=== PATIENT | male | born 1985 | race Caucasian/White ===

== ENCOUNTER 2022-12-25 07:34 | Inpatient (IN) | payer OTHER ==
[2022-12-25] MEDS ORDERED: THIAMINE INJ 100 MG, MAGNESIUM SULFATE 2 GM, MULTIVITAMIN 10 ML, FOLIC ACID INJ 1 MG in... IV ONE ×5 (07:56)
[2022-12-25] MEDS ORDERED: LORazepam 2 MG/ML VIAL IVP STA ×3 (07:56→10:11)
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
[2022-12-25 08:02] LABS: BASOPHILS % (AUTO) 0.2 %; HCT - HEMATOCRIT 41.8 % (42.0-52.0); HGB - HEMOGLOBIN 13.7 g/dL (14.0-18.0); LYMPHOCYTES # (AUTO) 0.6 10^3/uL (1.5-3.5); LYMPHOCYTES % (AUTO) 13.1 %; MEAN CORPUSCULAR HEMOGLOBIN 32.5 pg (27.0-31.0); MEAN CORPUSCULAR HGB CONC 32.8 g/dL (32.0-36.0); MEAN CORPUSCULAR VOLUME 99.3 fL (80.0-94.0); MEAN PLATELET VOLUME 10.2 fL (7.4-11.4); MONOCYTES # (AUTO) 0.5 10^3/uL (0.0-1.0); MONOCYTES % (AUTO) 10.5 %; NEUTROPHILS # (AUTO) 3.2 10^3/uL (1.5-6.6); NEUTROPHILS % (AUTO) 75.7 %; PLT - PLATELET COUNT 124 10^3/uL (130-450); RED BLOOD COUNT 4.21 10^6/uL (4.70-6.10); WHITE BLOOD COUNT 4.3 x10^3/uL (4.8-10.8)
[2022-12-25 08:13] LABS: GLUCOSE, URINE (UA) NEGATIVE (NEGATIVE); KETONES,URINE (UA) >=80 mg/dL (NEGATIVE); LEUKOCYTE ESTERASE, URINE NEGATIVE (NEGATIVE); NITRITE,URINE NEGATIVE (NEGATIVE); OCCULT BLOOD,URINE NEGATIVE (NEGATIVE); PROTEIN,URINE TRACE mg/dL (NEGATIVE); UROBILINOGEN,URINE 0.2 (NORMAL) E.U./dL (NORMAL)
[2022-12-25 08:22] LABS: ALBUMIN 4.9 g/dL (3.2-5.5); ALBUMIN/GLOBULIN RATIO 1.2 (1.0-2.2); ALKALINE PHOSPHATASE 67 IU/L (42-121); ALT ALANINE AMINOTRANSFERASE 44 IU/L (10-60); AST ASPARTATE AMINOTRANSFERASE 89 IU/L (10-42); BILIRUBIN,TOTAL 1.1 mg/dL (0.2-1.0); BUN - BLOOD UREA NITROGEN 10 mg/dL (6-20); CALCIUM 9.5 mg/dL (8.5-10.3); CARBON DIOXIDE - CO2 25 mmol/L (21-32); CHLORIDE 98 mmol/L (101-111); CREATININE 0.7 mg/dL (0.6-1.2); ETOH - ETHANOL < 5.0 mg/dL; GFR - MDRD 128 (>89); GLUCOSE 102 mg/dL (70-100); LIPASE 44 U/L (22-51); POTASSIUM 3.5 mmol/L (3.5-5.0); SODIUM 135 mmol/L (135-145); TOTAL PROTEIN 8.9 g/dL (6.7-8.2)
[2022-12-25 08:26] LABS: BILIRUBIN,URINE NEGATIVE (NEGATIVE); CLARITY,URINE CLEAR (CLEAR)
[2022-12-25 08:27] LABS: ICTOTEST,URINE NEGATIVE
[2022-12-25 08:28] LABS: AMPHETAMINE SCREEN,URINE NEGATIVE (NEGATIVE); BARBITURATE SCREEN,UR NEGATIVE (NEGATIVE); BENZODIAZEPINES SCREEN, URINE NEGATIVE (NEGATIVE); COCAINE SCREEN URINE NEGATIVE (NEGATIVE); METHADONE SCREEN, URINE NEGATIVE (NEGATIVE); METHAMPHETAMINES SCREEN, URINE NEGATIVE (NEGATIVE); OPIATE SCREEN, URINE NEGATIVE (NEGATIVE); OXYCODONE SCREEN, URINE NEGATIVE (NEGATIVE); PROPOXYPHENE SCREEN, URINE NEGATIVE (NEGATIVE); THC CANNABINOID SCREEN, URINE NEGATIVE (NEGATIVE); TRICYCLIC ANTIDEPRESSANT,URINE NEGATIVE (NEGATIVE)
[2022-12-25 08:34] LABS: PT - PROTHROMBIN TIME 11.4 secs (9.9-12.6)
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
[2022-12-25] MEDS: LORazepam 2 MG/ML VIAL IVP PRN ×11 (11:15→21:49)
[2022-12-25] MEDS: PANTOPRAZOLE 40 MG VIAL IVP SCH (13:45)
[2022-12-25] MEDS ORDERED: MULTIVITAMIN 10 ML, THIAMINE INJ 100 MG, POTASSIUM CHLORIDE INJ 20 MEQ, FOLIC ACID INJ ... IV SCH ×10 (15:37→17:00)
[2022-12-25 15:48] LABS: CALCIUM, IONIZED 1.11 mmol/L (1.15-1.33); VBG PH 7.375 (7.31-7.41)
[2022-12-25 15:58] LABS: MAGNESIUM 2.2 mg/dL (1.7-2.8); PHOSPHORUS 3.3 mg/dL (2.5-4.6)
[2022-12-25] MEDS ORDERED: MAGNESIUM SULFATE 2 GRAM 2 GM/50 ML BAG IV ONE (16:00)
[2022-12-25] MEDS: SODIUM CHLORIDE FLUSH 0.9% 10 ML SYRINGE IVP SCH ×2 (16:50→21:49)
[2022-12-25] MEDS: POTASSIUM CHLOR 10 MEQ/100 ML 10 MEQ/100 ML BAG IV SCH ×4 (17:43→21:46)
[2022-12-26] MEDS: LORazepam 2 MG/ML VIAL IVP PRN ×8 (00:23→21:43)
[2022-12-26] MEDS: SODIUM CHLORIDE FLUSH 0.9% 10 ML SYRINGE IVP PRN ×2 (00:23→06:20)
[2022-12-26] MEDS: SODIUM CHLORIDE 0.9% 1,000 ML IV SCH ×3 (02:13→22:37)
[2022-12-26 05:51] LABS: BASOPHILS % (AUTO) 0.4 %; CALCIUM, IONIZED 1.12 mmol/L (1.15-1.33); EOSINOPHILS # (AUTO) 0.1 10^3/uL (0.0-0.7); EOSINOPHILS % (AUTO) 1.6 %; HCT - HEMATOCRIT 38.7 % (42.0-52.0); HGB - HEMOGLOBIN 12.4 g/dL (14.0-18.0); LYMPHOCYTES # (AUTO) 0.8 10^3/uL (1.5-3.5); LYMPHOCYTES % (AUTO) 15.3 %; MEAN CORPUSCULAR HEMOGLOBIN 33.1 pg (27.0-31.0); MEAN CORPUSCULAR VOLUME 103.2 fL (80.0-94.0); MEAN PLATELET VOLUME 10.1 fL (7.4-11.4); MONOCYTES # (AUTO) 0.5 10^3/uL (0.0-1.0); MONOCYTES % (AUTO) 10.3 %; NEUTROPHILS # (AUTO) 3.6 10^3/uL (1.5-6.6); NEUTROPHILS % (AUTO) 72.2 %; PLT - PLATELET COUNT 137 10^3/uL (130-450); RED BLOOD COUNT 3.75 10^6/uL (4.70-6.10); RED CELL DISTRIBUTION WIDTH 12.1 % (12.0-15.0); VBG PH 7.323 (7.31-7.41)
[2022-12-26 06:02] LABS: ALBUMIN/GLOBULIN RATIO 1.2 (1.0-2.2); BILIRUBIN,TOTAL 1.1 mg/dL (0.2-1.0); CALCIUM 8.5 mg/dL (8.5-10.3); CREATININE 0.6 mg/dL (0.6-1.2); MAGNESIUM 2.3 mg/dL (1.7-2.8); PHOSPHORUS 3.1 mg/dL (2.5-4.6); POTASSIUM 3.8 mmol/L (3.5-5.0); TOTAL PROTEIN 7.3 g/dL (6.7-8.2)
[2022-12-26] MEDS: PANTOPRAZOLE 40 MG VIAL IVP SCH (06:20)
[2022-12-26] MEDS: POTASSIUM CHLOR 10 MEQ/100 ML 10 MEQ/100 ML BAG IV SCH ×2 (06:27→07:49)
[2022-12-26] MEDS: NICOTINE 7 MG PATCH TOP SCH (09:25)
[2022-12-26] MEDS: polyethylene glycoL 3350 17 GM PACKET PO SCH (09:29)
[2022-12-26] MEDS: SODIUM CHLORIDE FLUSH 0.9% 10 ML SYRINGE IVP SCH ×2 (09:29→18:19)
[2022-12-26] MEDS: ENOXAPARIN 40 MG/0.4 ML SYRINGE SUBQ SCH (09:32)
--- NOTE | 2022-12-26 10:45 | PHARMACY PROGRESS NOTE ---
- Best Possible Medication History Admit Date and Time: 12/25/22 1048 Processed by: Pharmacy Medication History completed: Yes Patient Interview: Pt interview ONLY source As the person ultimately responsible for medication therapy, providers are able to order a medication from an existing home medication list in [facility] via the "Reconcile Routine" prior to Confirmation of that medication by faculty support coordinator. Such practice is discouraged except when the physician, in their clinical judgment, deems that a medical need exists for a medication without regard to previous use.
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
[2022-12-26] MEDS: MULTIVITAMIN TABLET PO SCH (12:27)
[2022-12-26] MEDS: THIAMINE 100 MG TABLET PO SCH (12:27)
[2022-12-26] MEDS: chlordiazePOXIDE 5 MG CAPSULE PO SCH ×2 (13:28→21:43)
[2022-12-26] MEDS ORDERED: POTASSIUM CHLORIDE 20 MEQ TABLET PO ONE (17:00)
[2022-12-27] MEDS: SODIUM CHLORIDE FLUSH 0.9% 10 ML SYRINGE IVP SCH ×3 (03:20→17:43)
[2022-12-27 05:25] LABS: CALCIUM, IONIZED 1.16 mmol/L (1.15-1.33); VBG PH 7.342 (7.31-7.41)
[2022-12-27 05:32] LABS: PHOSPHORUS 3.1 mg/dL (2.5-4.6); POTASSIUM 3.9 mmol/L (3.5-5.0)
[2022-12-27] MEDS: PANTOPRAZOLE 40 MG TABLET PO SCH (06:26)
[2022-12-27] MEDS: chlordiazePOXIDE 5 MG CAPSULE PO SCH ×3 (06:26→21:54)
[2022-12-27] MEDS: polyethylene glycoL 3350 17 GM PACKET PO SCH (08:02)
[2022-12-27] MEDS: THIAMINE 100 MG TABLET PO SCH (08:20)
[2022-12-27] MEDS: MULTIVITAMIN TABLET PO SCH (08:20)
[2022-12-27] MEDS: NICOTINE 7 MG PATCH TOP SCH (08:21)
[2022-12-27] MEDS: ENOXAPARIN 40 MG/0.4 ML SYRINGE SUBQ SCH ×2 (08:24→08:27)
[2022-12-27] MEDS: SODIUM CHLORIDE 0.9% 1,000 ML IV SCH (08:48)
[2022-12-27] MEDS ORDERED: POTASSIUM CHLORIDE 20 MEQ TABLET PO ONE (08:50)
[2022-12-27 12:34] LABS: BASOPHILS % (AUTO) 0.5 %; HCT - HEMATOCRIT 41.7 % (42.0-52.0); HGB - HEMOGLOBIN 13.7 g/dL (14.0-18.0); LYMPHOCYTES # (AUTO) 0.8 10^3/uL (1.5-3.5); LYMPHOCYTES % (AUTO) 20.4 %; MEAN CORPUSCULAR HGB CONC 32.9 g/dL (32.0-36.0); MEAN CORPUSCULAR VOLUME 100.5 fL (80.0-94.0); MEAN PLATELET VOLUME 9.8 fL (7.4-11.4); MONOCYTES # (AUTO) 0.5 10^3/uL (0.0-1.0); MONOCYTES % (AUTO) 11.4 %; NEUTROPHILS # (AUTO) 2.7 10^3/uL (1.5-6.6); NEUTROPHILS % (AUTO) 66.5 %; PLT - PLATELET COUNT 166 10^3/uL (130-450); RED BLOOD COUNT 4.15 10^6/uL (4.70-6.10); RED CELL DISTRIBUTION WIDTH 11.7 % (12.0-15.0)
[2022-12-27 12:44] LABS: CALCIUM 9.6 mg/dL (8.5-10.3); CREATININE 0.6 mg/dL (0.6-1.2); POTASSIUM 4.2 mmol/L (3.5-5.0)
[2022-12-27] MEDS: METOPROLOL SUCCINATE 50 MG TABLET PO SCH (14:15)
--- NOTE | 2022-12-27 17:10 | PROVIDER PROGRESS NOTE ---
Progress Note December 27, 2022 5:04 PM He is up in a chair, seems to have an essential tremor with head shaking. But he is alert, oriented. Librium has been 5 mg 3 times daily. Ativan is 1 mg every 2 hours as needed and his last dose was at 945 last night. Nursing reported that he is continually tachycardic, and slightly hypertensive. Blood pressure is 155/105, 150/99. I started metoprolol XL 50 mg for the blood pressure and the tachycardia and his blood pressure is now 132/92. Active Medications Chlordiazepoxide HCl (Chlordiazepoxide 5 Mg Capsule) 5 mg PO TID [facility] Last Admin: 12/27/22 13:59 Dose: 5 mg Enoxaparin Sodium (Enoxaparin 40 Mg/0.4 Ml Syringe) 40 mg SUBQ DAILY [facility] Last Admin: 12/27/22 08:27 Dose: Not Given Sodium Chloride (Normal Saline 0.9%) 1,000 mls @ 100 mls/hr IV .Q10H [facility] Last Infusion: 12/27/22 09:45 Dose: 0 mls/hr Lorazepam (Lorazepam 2 Mg/Ml Vial) 1 mg IVP Q30M PRN; Protocol PRN Reason: CIWA >8 Last Admin: 12/26/22 21:43 Dose: 1 mg Metoprolol Succinate (Metoprolol Succinate 50 Mg Tablet) 50 mg PO DAILY [facility] Last Admin: 12/27/22 14:15 Dose: 50 mg Nicotine (Nicotine 7 Mg Patch) 1 patch TOP DAILY [facility] Last Admin: 12/27/22 08:21 Dose: 1 patch Pantoprazole Sodium (Pantoprazole 40 Mg Tablet) 40 mg PO QDAC [facility] Last Admin: 12/27/22 06:26 Dose: 40 mg Polyethylene Glycol (Polyethylene Glycol 3350 17 Gm Packet) 17 gm PO DAILY [facility] Last Admin: 12/27/22 08:02 Dose: Not Given Multivit/Folic Acid/Iron ( Vitamin Tablet) 1 tab PO DAILYWM [facility] Sodium Chloride (Sodium Chloride Flush 0.9% 10 Ml Syringe) 10 ml IVP 0100,0900,1700 [facility] Last Admin: 12/27/22 08:48 Dose: Not Given Sodium Chloride (Sodium Chloride Flush 0.9% 10 Ml Syringe) 10 ml IVP PRN PRN PRN Reason: NEEDED PER PROVIDER ORDERS Last Admin: 12/26/22 06:20 Dose: 10 ml Thiamine HCl (Thiamine 100 Mg Tablet) 100 mg PO DAILY [facility] Last Admin: 12/27/22 08:20 Dose: 100 mg No Known Home Medications 12/26/22 Exam: Temperature 36.9. Heart rate 86. Blood pressure 132/92. Respirations 16. 98% on room air. He is an alert, oriented young white male looks stated age His face is developed a acneiform rash starting along the nasolabial folds and around his cheeks. Neck is supple Lungs are clear to auscultation and percussion without any increased respiratory effort and speaking to me Regular rate and rhythm Abdomen is soft, nontender Extremities are warm, no edema, fully ambulatory without any assist Neurologically there is no tremulousness, he is alert and oriented to person place and time, he would like to go home with a benzodiazepine. His head and hands seem to have an essential tremor that he says runs in his family. Labs: Sodium 136, potassium 4.2, BUN 6, creatinine 0.6, glucose 122, calcium 9.6 White cell count 4.0, hemoglobin 13.7, hematocrit 41.7, MCV 100.5, platelets 166 Conclusion/Plan - Problem List (1) Alcohol withdrawal delirium, acute, hyperactive Conclusion/Plan: If it was not for the tachycardia, I would think that his alcohol withdrawal had completely resolved. His delirium has certainly improved. His last IV benzodiazepine was last night. He is on Librium 5 mg p.o. 3 times daily and well-controlled with his agitation and acute hyperactive status. He would like to go home tomorrow. And he would like to go home on a benzodiazepine to help him with further withdrawal symptoms. He is ambulating in the room. Sitting up in a chair. Eating and drinking normally. Plan: I explained that we would be glad to send him home with Librium 5 mg p.o. 3 times daily, probably about 3 to 5 days worth of medicines. But after that he really needs to establish himself with a primary care provider to get ongoing care. He says he does not have 1 right now. A list of been given to him by social work. I also want him to get thiamine 100 mg a day, and a vitamin daily. If he wants further benzodiazepines he will need to get them from his PCP. He really is hesitant at committing to rehab. He says that he wants to work and will go back to work the day he leaves the hospital. 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 And he is thinking that he would just do outpatient rehab. I expect that the beta-bharti and Librium will control him overnight and he will be ready for discharge tomorrow morning. IV fluids will be stopped today. (2) Alcohol abuse Conclusion/Plan: In looking at his lab work, he does not have macrocytosis. Liver enzymes are only minimally elevated. Coagulation profile is acceptable. So his MELD score is low. I am hoping he can get through rehab and with hard work on his part, stop drinking alcohol. (3) BRBPR (bright red blood per rectum) Conclusion/Plan: By history. As far as his aunt and dad know there has been no black tarry stools. The patient does not have a history of vomiting blood.Hemoglobin has stayed stable. It was 13.7 on admission>>12.4>>13.7 today. Nursing reports that he had a coughing up of blood 3/4. There are no lesions in his mouth. Not clear if he may have had a nosebleed and then coughed up blood. Or did he truly have hemoptysis. Or do we have to suspect hematemesis? I doubt the latter since he is hemodynamically stable with this. And hemoglobin is stable. He is on a proton pump inhibitor and that will continue while he is here. Plan: Watch for signs and symptoms of variceal bleeding. (4) DVT prophylaxis is been with Lovenox. Platelets have been stable. He is now up and ambulating. I will stop Lovenox and exchange trouble shooter to compression stockings. (5) Hypertension Metoprolol added with good response. I told him that this may just be a complication of the withdrawal. He should see a primary care provider in the next month and see if he needs to be on metoprolol or if it can be stopped.
[2022-12-28] MEDS: SODIUM CHLORIDE FLUSH 0.9% 10 ML SYRINGE IVP SCH ×2 (01:12→08:01)
[2022-12-28 05:31] LABS: CALCIUM, IONIZED 1.16 mmol/L (1.15-1.33); VBG PH 7.399 (7.31-7.41)
[2022-12-28 05:34] LABS: MAGNESIUM 2.1 mg/dL (1.7-2.8); PHOSPHORUS 4.5 mg/dL (2.5-4.6); POTASSIUM 3.9 mmol/L (3.5-5.0)
[2022-12-28] MEDS: chlordiazePOXIDE 5 MG CAPSULE PO SCH ×2 (06:15→13:36)
[2022-12-28] MEDS: PANTOPRAZOLE 40 MG TABLET PO SCH (06:15)
[2022-12-28] MEDS ORDERED: PRENATAL VITAMIN TABLET PO SCH (08:00)
[2022-12-28] MEDS: polyethylene glycoL 3350 17 GM PACKET PO SCH (08:01)
[2022-12-28] MEDS: THIAMINE 100 MG TABLET PO SCH (08:01)
[2022-12-28] MEDS: NICOTINE 7 MG PATCH TOP SCH (08:01)
[2022-12-28] MEDS: METOPROLOL SUCCINATE 50 MG TABLET PO SCH (08:01)
[2022-12-28] MEDS ORDERED: METOPROLOL SUCCINATE 50 MG TABLET PO SCH (09:00)
--- NOTE | 2022-12-28 12:14 | Discharge Plan ---
Discharge Plan Problem Reviewed?: Yes Disposition: Home, Self Care Condition: Stable Prescriptions: chlordiazePOXIDE [Librium] 5 mg PO TID #8 cap Thiamine [Vitamin B-1] 100 mg PO DAILY #30 tab Diet: Regular Activity Restrictions: Activity as Tolerated Shower Restrictions: No Driving Restrictions: Yes (No driving when intoxicated from alcohol intake) Assistance Devices: Wheelchair Weight Bearing: Full Weight Health Concerns: You were hospitalized to treat alcohol withdrawal. You are being discharged home today, advised to stop drinking alcohol, reach out to the resources given to you by our Chiropractic Physician and see a Primary Care Provider for further management. You are being discharged home with prescriptions for Librium, to taper down, for continued alcohol withdrawal treatment, and a Thiamine vitamin to take daily. If you need medications for anxiety, please discuss that with your Primary Care Provider. Plan of Treatment: As above. Care Goals: Improvement in symptoms and stabilization are the goals. Assessment: The patient understands and is agreeable with the plan. Additional Instructions or Follow Up instructions: If you have new or worsening symptoms, call your PCP for advice, or come to the ER. No Smoking: If you smoke, Please STOP! Call for help.
--- NOTE | 2022-12-28 13:46 | DISCHARGE SUMMARY ---
Discharge Summary Admit Date: 12/25/22 Discharge Date: 12/28/22 Discharging Provider: Dr Awilda Abebe Primary Care Provider: [facility] Condition at Discharge: Stable Discharge Disposition: 01 Home, Self Care - HPI History of Present Illness: 37-year-old white male who drinks a gallon of vodka a week. He told the ER provider that he stopped drinking and smoking 2 weeks ago but dad is thinking it is closer to the last day or so. There have been no new events in his life. No new job loss, no new crisis. 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 It was a heavy partying lifestyle with a young group of people that partied in [place] quite a bit. When he started doing cocaine, in addition to alcohol, he decided that it was too much and came home. 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 And he continues to drink alcohol. He has been telling his family that he really needs to stop drinking. Family thinks he is just never recovered from his mom's . And he has "given up". He tells them repeatedly "I know I am just going to ". The family is estimating that he may have stopped drinking on December 22. Because starting December 23, the tremors and the shaking started. Between December 23 and this morning (Dec 25), the tremors have just increased in severity. He went over to his dad's house yesterday because he needed to have some laundry done, and the apartment he lives in does not have a washer dryer. Dad noted that son was already shaking and tremulous but attributed to the fact that the family has a history of essential tremor and thought that his son was developing the essential tremor. Son disappeared in the middle of the night, maybe 2 in the morning, did not know where he went. He says that his son does that alot and he does not know where he goes. The patient drove to [place] because some type of "bomb" was going to go off. From [place] he went back to his apartment in [place]. This morning he called his sister hallucinating and delirious. The hallucinations did start last night (spiders, bombs, people out to get him) even before he disappeared at 2am. Sister and family decided to bring him in for a mental health evaluation. The emergency room provider found him to be afebrile, slightly tachycardic at 106, hypertensive at 164/115, and 99% saturating on room air. Hyperventilating slightly at breath rate of 24. He is definitely tremulous, hallucinating, needs constant prompts to stay safely in bed. He is impulsive, keeps on trying to get out of bed and is reaching for things that are not there, and responding to voices. Toxicology screen is negative and ethyl alcohol level less than 5. Urinalysis is negative for UTI. Chemistry showed bili of 1.1, AST 89, ALT 84. Rest of his labs are relatively benign. INR is 1. White cell count is 4.3, hemoglobin 13 .7, hematocrit 41.8. Treatment has consisted of thiamine 100 mg once, and 2 mg lorazepam twice. Elvin lewis is still agitated, hallucinating, impulsive. The ER provider called me for discussion of the case. I do feel he is in active alcohol withdrawal and as such we will be bringing him in for inpatient status in the ICU. I explained to his father that if he remains impulsive and hallucinatory and is unable to follow commands, I will unfortunately most likely have to order soft restraints. Dad is tearful, his voice is breaking as he talks about his son. He knew that his son had a drinking problem but he did not think it was ever this bad. Dad is okay with me having to put his son in restraints temporarily. - HOSPITAL COURSE Hospital Course: (1) Alcohol withdrawal delirium, acute, hyperactive He was put on CIWA protocol, given IV Ativan and then also started on p.o. Librium. This eventually controlled his delirium, agitation and acute hyperactive status. He was sent home with a prescription for Librium 5 mg p.o. tid, with a tapering down schedulke over several days. He was told to abstain from alcohol. He really needs to establish himself with a primary care provider to get ongoing care. A list of providers was given to him by social work. He also was kept on thiamine 100 mg a day, and discharged on this. He really is hesitant at committing to alcohol rehab. He says that he wants to work and will go back to work the day he leaves the hospital. 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 And he is thinking that he would just do outpatient rehab. (2) Alcohol abuse In looking at his lab work, he does not have macrocytosis. Liver enzymes are only minimally elevated. Coagulation profile is acceptable. So his MELD score is low. We are hoping he can get through rehab and with hard work on his part, stop drinking alcohol. (3) BRBPR (bright red blood per rectum) By history. As far as his aunt and dad know there has been no black tarry st ools. The patient does not have a history of vomiting blood. Hemoglobin remained stable. He was on a proton pump inhibitor while here. (4) Hypertension This may be a complication of the withdrawal. Metoprolol was added with good response and he was discharged on this. He should see a primary care provider in the next month and see if he needs to be on metoprolol or if it can be stopped. - ALLERGIES Allergies/Adverse Reactions: Allergies Allergy/AdvReac Type Severity Reaction Status Date / Time Penicillins Allergy Hives Verified 12/25/22 08:39 - MEDICATIONS Home Medications: Ambulatory Orders Medication Instructions Recorded Confirmed Thiamine [Vitamin B-1] 100 mg PO DAILY #30 tab 12/28/22 chlordiazePOXIDE [Librium] 5 mg PO TID #8 cap 12/28/22 - PHYSICAL EXAM AT DISCHARGE General Appearance: positive: No acute distress, Alert Eyes Bilateral: positive: Normal inspection, EOMI, Other (Anicteric) ENT: positive: ENT inspection nml, No signs of dehydration Neck: positive: Nml inspection, No JVD Respiratory: positive: No respiratory distress, Breath sounds nml Cardiovascular: positive: Regular rate & rhythm, No murmur Abdomen: positive: Non-tender, No distention Skin: positive: Warm, Dry Extremities: positive: Non-tender, No pedal edema Neurologic/Psychiatric: positive: Oriented x3, Other (No tremor, no asterixis.) - LABS Result Diagrams: 12/27/22 12:22 12/28/22 05:12 - FOLLOW UP Follow Up: See PCP in the next 5-7 days. - TIME SPENT Time Spent in Discharge (Minutes): 30
[2022-12-28 13:59] VITALS: BP 136/99
== END 2022-12-28 14:05 | disposition home or self-care (01) | DRG 897 ==
LOC: ED 07:34 → ICU 10:48 → MS2 12-27 18:44
PROVIDERS: ADMIT Specialist; ATTEND Internal Medicine
DX: F10.131 Alcohol abuse with withdrawal delirium (principal); R44.0 Auditory hallucinations; K62.5 Hemorrhage of anus and rectum; R44.1 Visual hallucinations; F90.9 Attention-deficit hyperactivity disorder, unspecified type; I10 Essential (primary) hypertension; R25.1 Tremor, unspecified; F17.210 Nicotine dependence, cigarettes, uncomplicated
CPT/HCPCS: 36415; 80048; 80053; 80306; 80320; 81003; 82330; 83690; 83735; 84100; 84132; 85025; 85610; 87150; 96365; 96366; 96375; 96376; 99285; A9270; J1650; J2060; J3411; 81001; 84484; 87086

== ENCOUNTER 2025-02-19 16:02 | Inpatient (IN) ==
[~2025-02-19 16:02] MED LIST: MAGNESIUM SULFATE IV SCH; MULTIVITAMIN IV SCH; THIAMINE IV SCH; [UNRECOGNIZED DRUG - OTHER] IV SCH
[2025-02-19] MEDS: LORazepam 2 MG/ML VIAL IVP STA ×3 (16:38→18:14)
[2025-02-19 16:43] LABS: BASOPHILS % (AUTO) 0.1 %; HGB - HEMOGLOBIN 13.1 g/dL (14.0-18.0); LYMPHOCYTES # (AUTO) 0.6 10^3/uL (1.5-3.5); LYMPHOCYTES % (AUTO) 6.8 %; MEAN CORPUSCULAR HEMOGLOBIN 33.3 pg (27.0-31.0); MEAN CORPUSCULAR HGB CONC 32.8 g/dL (32.0-36.0); MEAN CORPUSCULAR VOLUME 101.8 fL (80.0-94.0); MEAN PLATELET VOLUME 9.9 fL (7.4-11.4); MONOCYTES # (AUTO) 0.6 10^3/uL (0.0-1.0); MONOCYTES % (AUTO) 7.1 %; NEUTROPHILS # (AUTO) 7.7 10^3/uL (1.5-6.6); NEUTROPHILS % (AUTO) 85.8 %; PLT - PLATELET COUNT 126 10^3/uL (130-450); RED BLOOD COUNT 3.93 10^6/uL (4.70-6.10)
[2025-02-19 17:00] LABS: ACETAMINOPHEN 1.5 ug/mL; CK- CREATINE KINASE 975 IU/L (30-223); ETOH - ETHANOL < 10.0 mg/dL; LIPASE 21 U/L (11-82); MAGNESIUM 2.2 mg/dL (1.7-2.3)
[2025-02-19 17:02] LABS: ALBUMIN 5.1 g/dL (3.2-5.5); ALBUMIN/GLOBULIN RATIO 1.3 (1.0-2.2); ALKALINE PHOSPHATASE 76 IU/L (42-121); ALT ALANINE AMINOTRANSFERASE 67 IU/L (10-60); AST ASPARTATE AMINOTRANSFERASE 111 IU/L (10-42); BILIRUBIN,TOTAL 1.2 mg/dL (0.2-1.0); BUN - BLOOD UREA NITROGEN 27 mg/dL (6-20); CALCIUM 9.4 mg/dL (8.5-10.3); CARBON DIOXIDE - CO2 14 mmol/L (21-32); CHLORIDE 91 mmol/L (101-111); CREATININE 0.9 mg/dL (0.6-1.3); GFR - MDRD 95 (>89); GLUCOSE 83 mg/dL (74-104); POTASSIUM 4.5 mmol/L (3.5-4.5); SALICYLATE < 1.5 mg/dL; SODIUM 128 mmol/L (135-145); TOTAL PROTEIN 8.9 g/dL (6.4-8.9)
--- NOTE | 2025-02-19 17:11 | ED Physician Documentation ---
History of Present Illness Stated complaint Stated Complaint: ETOH W/D Chief complaint Chief Complaint: General History obtained from History obtained from: Patient History of Present Illness Pain level max: 4 Pain level now: 4 Additonal information Additional information: 39-year-old male reportedly with a history of alcoholism was sent by ambulance from the walk-in clinic for reported alcohol withdrawal. Reportedly stopped drinking about 5 days ago. Patient is very shaky. He states that he has not had a drink in "years". EMS states that his last drink was yesterday at around 3-4 o'clock. He states that he has never had a seizure from alcohol withdrawal but has had hallucinations and has been seeing things that are not there. No chest pain. No shortness of breath. He states he has epigastric abdominal pain, worse with eating and drinking. [place] Coma Scale Assess Eye opening: Spontaneous Verbal response: Confused Motor response: Obeys Commands Total score: 14 Review of Systems Constitutional Denies: Fever or Chills Meds/Allgy Home Medications Ambulatory Orders Medication Instructions Recorded Confirmed ibuprofen 200 mg tablet (Addaprin) 200 mg PO PRN PRN fever or pain 02/19/25 02/19/25 Allergies Allergies Allergy/AdvReac Type Severity Reaction Status Date / Time Penicillins Allergy Hives Verified 02/19/25 16:23 PFSH Active Problems All Active Problems (Updated 02/19/25 @ 19:08 by Cosmo Roberts MD) Delirium tremens (Acute) Impetigo (Acute) Social History Social History (Updated 02/19/25 @ 16:20 by Joshua Tello RN, BSN) Smoking Status: Light tobacco smoker Do you dip or chew tobacco?: Yes Patient requests smoking cessation consult: Yes Initiate information on smoking cessation: Yes Living arrangement: At home Living Condition: Alone Relationship: Do you feel safe in your home environment?: Yes Suffered physical, verbal, emotional, or financial abuse?: No ETOH Use: Beer and Liquor Frequency: Daily Number of Amount/day: 4 Substance Use: cannabis (any form) POLST Patient has POLST: No POLST Status: Full Code Exam Exam Vital Signs: Vital Signs x48h Temp Pulse Resp BP Pulse Ox 02/19/25 18:05 115 H 18 135/78 H 96 02/19/25 16:08 37.1 C 112 H 20 127/72 99 Constitutional Patient is very anxious appearing, unable to sit still. HENMT normocephalic and head/scalp atraumatic Eyes PERRL Neck/C-Spine trachea midline Respiratory breath sounds equal bilaterally and normal respiratory effort Cardiovascular Tachycardic Gastrointestinal abdomen soft to palpation, nontender to palpation and nondistended Genitourinary no CVA tenderness Back/Pelvis no thoracic spine tenderness and no lumbar spine tenderness Extremities normal to inspection and no tenderness Psychiatry Alert, oriented to person and place, confused to time Skin skin color normal Results Vitals Vitals: Vital Signs - 24 hr 02/19/25 16:08 02/19/25 18:05 Temperature 37.1 C Temperature Source Temporal Artery Scan Pulse Rate 112 H 115 H Respiratory Rate 20 18 Blood Pressure 127/72 135/78 H O2 Saturation 99 96 O2 Source Room air Room air Pain Intensity 5 0 Oxygen O2 Source Room air EKG (time done) 1754: EKG releavant findings:: EKG personally interpreted by author of this note. Relevant findings are: Rate: Other (113 bpm. Sinus tachycardia. Normal axis. No ST changes. Normal QRS) Labs Labs: Laboratory Tests 02/19/25 16:38 WBC 9.0 RBC 3.93 L Hgb 13.1 L Hct 40.0 L MCV 101.8 H MCH 33.3 H MCHC 32.8 RDW 12.0 Plt Count 126 L MPV 9.9 Neut # (Auto) 7.7 H Lymph # (Auto) 0.6 L [place] # (Auto) 0.6 Eos # (Auto) 0.0 Baso # (Auto) 0.0 Absolute Nucleated RBC 0.00 Nucleated RBC % 0.0 Sodium 128 L Potassium 4.5 Chloride 91 L Carbon Dioxide 14 L Anion Gap 23.0 H BUN 27 H Creatinine 0.9 Estimated GFR (MDRD) 95 Glucose 83 Calcium 9.4 Magnesium 2.2 Total Bilirubin 1.2 H AST 111 H ALT 67 H Alkaline Phosphatase 76 Total Creatine Kinase 975 H Total Protein 8.9 Albumin 5.1 Globulin 3.8 Albumin/Globulin Ratio 1.3 Lipase 21 TSH 0.95 Salicylates < 1.5 Acetaminophen 1.5 Ethyl Alcohol < 10.0 PD Medical Decision Making ED course Complexity details: reviewed results, re-evaluated patient, considered differential and d/w patient ED course: 39-year-old male with severe alcohol withdrawal. Given 2 mg Ativan, IV fluids. Continues to have hallucinations and significant tremors. Patient will require admission for his severe alcohol withdrawal. Just prior to transfer to the ICU he attempted to get up out of bed and fell hitting the wall. No loss of consciousness. No seizure activity. Head CT is ordered and will be done either here or in the ICU. Admitting provider notified as well. Discussed the case with the hospitalist and will accept for admission to ICU. This document was made in part using voice recognition software. While efforts are made to proofread this document, sound alike and grammatical errors may occur. Discharge Plan Discharge Patient Disposition: [facility] DC/Xfer Condition: Stable Clinical Impression: Delirium tremens Prescriptions: No Action ibuprofen [Addaprin] 200 mg tablet 200 mg PO PRN PRN (Reason: fever or pain) Print Language: Guinean Stand Alone Forms: PCP List
[2025-02-19 17:13] LABS: THYROID STIMULATING HORMONE 0.95 uIU/mL (0.34-5.60)
--- OUTSIDE RECORDS SUMMARY | 2025-02-19 17:19 | EXTERNAL MEDICAL SUMMARY RPT | Continuity of Care Document ---
Author Organization [facility] Address [address] [place] [id number] Phone Results/Labs test date facility value unit notes Result panel 1 SALICYLATE 2025-02-19 16:38 [facility] < 1.5 mg/dl Social History date description facility
[2025-02-19] MEDS: ONDANSETRON 4 MG/2 ML VIAL IVP STA (18:01)
--- NOTE | 2025-02-19 18:10 | HISTORY & PHYSICAL EXAMINATION ---
Chief Complaint Chief Complaint Chief Complaint: Alcohol withdrawal History of Present Illness Admitted From Admitted From:: Home History Obtained From History obtained from: Chart review Exam Limitations: Actively withdrawing off of alcohol History of Present Illness HPI Comment/Other: 39-year-old male history of alcoholism brought in by ambulance from walk-in clinic for alcohol withdrawal. History is hard to obtain as patient is delirious and hallucinating. Reported that he has never had a seizure from alcohol withdrawal In the ER, workup was significant for sodium 128, CO2 14, elevations in AST, ALT as well as a CK of 975. Alcohol, Tylenol, salicylate levels all negative. UDS was ordered by ER provider and is in process. Hospitalist was contacted for admission for acute alcohol withdrawal and impending delirium tremens Meds/Allgy Home Medications Ambulatory Orders Medication Instructions Recorded Confirmed ibuprofen 200 mg tablet (Addaprin) 200 mg PO PRN PRN fever or pain 02/19/25 02/19/25 Allergies Allergies Allergy/AdvReac Type Severity Reaction Status Date / Time Penicillins Allergy Hives Verified 02/19/25 16:23 PFSH Active Problems All Active Problems (Updated 02/19/25 @ 20:05 by Eric Hogue DNP) Rhabdomyolysis (Acute) Hyponatremia (Acute) Delirium tremens (Acute) Impetigo (Acute) Social History Social History (Updated 02/19/25 @ 16:20 by Joshua Tello RN, BSN) Smoking Status: Light tobacco smoker Do you dip or chew tobacco?: Yes Patient requests smoking cessation consult: Yes Initiate information on smoking cessation: Yes Living arrangement: At home Living Condition: Alone Relationship: Do you feel safe in your home environment?: Yes Suffered physical, verbal, emotional, or financial abuse?: No ETOH Use: Beer and Liquor Frequency: Daily Number of Amount/day: 4 Substance Use: cannabis (any form) POLST Patient has POLST: No POLST Status: Full Code Review of Systems Status of ROS: unobtainable due to mental status (And alcohol withdrawal, hallucinating.) Exam Exam Vital Signs: Vital Signs x48h Temp Pulse Resp BP Pulse Ox 02/19/25 18:05 115 H 18 135/78 H 96 02/19/25 16:08 37.1 C 112 H 20 127/72 99 Constitutional normal general appearance Anxious, tremorous HENMT normocephalic and head/scalp atraumatic Eyes PERRL Neck/C-Spine visual inspection normal Lymph no lymphadenopathy noted Chest inspection of chest normal Respiratory breath sounds equal bilaterally Cardiovascular normal heart rate noted and regular rhythm noted Gastrointestinal abdomen normal to inspection and abdomen soft to palpation Back/Pelvis spine normal to inspection Extremities normal to inspection Neurology Moves all extremities, follows commands. Nystagmus present. Knows he is in the hospital, hallucinating somebody and talking to the bedside monitor Psychiatry mental status abnormal (Delirious) Skin skin color normal Scattered abrasions. Bruise on chest Conclusion/Plan Problem List (1) Delirium tremens: Plan: Admit inpatient ICU Banana bag x 1 Daily multivitamin, thiamine CIWA protocol with high-dose IV Ativan per nursing protocol CBC BMP, mag, Phos in a.m. Seizure precautions Received 2 mg Ativan in the ER After time of my interview, was notified that patient got out of the ER stretcher and fell and possibly hit his head. CT head, C-spine was performed and found to be negative for any acute abnormalities. Will continue fall precautions. Patient received 130 mg IM phenobarbital prior to CT, resting comfortably now (2) Hyponatremia: Plan: Receiving banana bag now Saline at 125 after banana bag is done NS bolus 1 L now Sodium checks every 4 until greater than 130 (3) Rhabdomyolysis: Plan: Fluids as above BMP in a.m. to monitor for kidney injury Creatinine currently 0.9 Plan Admit inpatient ICU Full code as patient is unable to make decisions at this time Listed next of kin is Minh Hu, his father Lab Results Lab results reviewed: Yes 02/19/25 16:38 02/19/25 16:38
[2025-02-19] MEDS: PHENobarbital 65 MG/ML VIAL IM STA (18:41)
--- OUTSIDE RECORDS SUMMARY | 2025-02-19 19:20 | EXTERNAL MEDICAL SUMMARY RPT | Continuity of Care Document ---
Author Organization [facility] Address [address] [place] [id number] Phone Problems date description facility 2025-02-19 19:08 Alcohol use, unspecified with w ithdrawal delirium [facility] Results/Labs test date facility value unit notes Result panel 1 SALICYLATE 2025-02-19 16:38 [facility] < 1.5 mg/dl Social History date description facility
--- NOTE | 2025-02-19 19:32 | CT Report ---
PROCEDURE: CT Head WO INDICATIONS: fall TECHNIQUE: Noncontrast 4.5 mm thick angled axial sections acquired from the foramen magnum to the vertex. For r adiation dose reduction, the following was used: automated exposure control, adjustment of mA and/or kV according to patient size. COMPARISON: None. FINDINGS: Image quality: Excellent. CSF spaces: Basal cisterns are patent. No extra-axial fluid collections. Ventricles are normal in size and shape. Brain: No midline shift. No intracranial mass effect or hemorrhage. Mcduffie-white matter interface is normal. Skull and face: Calvarium and visualized facial bones are intact, without suspicious lesions. Sinuses: Visualized sinuses and mastoids are clear. IMPRESSION: No acute intracranial pathology. Reviewed by: Bubba Marc MD on 02/19/2025 7:31 PM PDT Approved by: Bubba Marc MD on 02/19/2025 7:31 PM PDT Station ID: [id number]
--- NOTE | 2025-02-19 19:32 | CT Report ---
PROCEDURE: CT Cervical Spine WO INDICATIONS: Fall TECHNIQUE: Noncontrast 3 mm thick sections acquired from the skull base to the T4 level. Sagittal and coronal r eformats were then constructed. For radiation dose reduction, the following was used: automated exp osure control, adjustment of mA and/or kV according to patient size. COMPARISON: None. FINDINGS: Image quality: Excellent. Bones: No fractures or dislocations. Mild degenerative endplate changes are noted at C5-6 and C6-7 levels causing mild central canal stenosis, no significant neural foraminal narrowing. Visualized sup erior ribs are intact. Soft tissues: Prevertebral soft tissues are normal in thickness. No paravertebral hematomas. No ap ical pneumothoraces. IMPRESSION: No acute, displaced fracture or traumatic subluxation. Mild degenerative disc disease in lower cervical spine as above. Reviewed by: Bubba Marc MD on 02/19/2025 7:30 PM PDT Approved by: Bubba Marc MD on 02/19/2025 7:30 PM PDT Station ID: [id number]
[2025-02-19] MEDS: THIAMINE IV SCH (19:40)
[2025-02-19] MEDS: [UNRECOGNIZED DRUG - OTHER] IV SCH (19:40)
[2025-02-19] MEDS: MULTIVITAMIN IV SCH (19:40)
[2025-02-19] MEDS: MAGNESIUM SULFATE IV SCH (19:40)
--- NOTE | 2025-02-19 20:00 | ED Physician Documentation ---
Restraint [id number] Immediate Situation Face to Face Evaluation Date: 02/19/25 Face to Face Evaluation Time: 18:55 Restraint Classification: Non-violent (Soft Restraint ONLY or Side Rails x4) Patient's Reaction & Behaviors Safety: Physically safe Behavioral Condition Attitude: Other Behavior: Agitated Orientation: Disoriented to all Mood: Other Behavioral Condition Comments: altered mental status due to DT from etoh withdrawal attempting to get out of bed and remove IV and monitoring equipment. hallucinating Evaluation Current Medical Condition Relating to Need for Restraint: cont soft restraints Pertinent History/Illicit Drugs/Medications/Results: DT
[2025-02-19] MEDS ORDERED: ONDANSETRON 4 MG/2 ML VIAL IVP PRN (20:05)
[2025-02-19] MEDS ORDERED: SODIUM CHLORIDE FLUSH 0.9% 10 ML SYRINGE IVP PRN (20:05)
[2025-02-19] MEDS: SODIUM CHLORIDE 0.9% 1,000 ML IV SCH (20:44)
[2025-02-19] MEDS: SODIUM CHLORIDE 0.9% 1,000 ML IV ONE (20:44)
[2025-02-19] MEDS: COD LIVER OIL/ZINC OXIDE 113 GM TUBE TOP PRN (21:45)
[2025-02-20 02:08] LABS: BILIRUBIN,URINE SMALL (NEGATIVE); GLUCOSE, URINE (UA) NEGATIVE (NEGATIVE); KETONES,URINE (UA) >=80 mg/dL (NEGATIVE); LEUKOCYTE ESTERASE, URINE NEGATIVE (NEGATIVE); NITRITE,URINE NEGATIVE (NEGATIVE); OCCULT BLOOD,URINE TRACE-LYSE (NEGATIVE); PROTEIN,URINE TRACE mg/dL (NEGATIVE); UROBILINOGEN,URINE 0.2 (NORMAL) E.U./dL (NORMAL)
[2025-02-20 02:09] LABS: CLARITY,URINE CLEAR (CLEAR)
[2025-02-20 02:17] LABS: RBC,URINE 0-5 /HPF (0-5); WBC,URINE 0-3 /HPF (0-3)
[2025-02-20 02:18] LABS: AMPHETAMINE SCREEN,URINE NEGATIVE (NEGATIVE); BACTERIA,URINE None Seen /HPF (None Seen); BARBITURATE SCREEN,UR POSITIVE (NEGATIVE); BENZODIAZEPINES SCREEN, URINE POSITIVE (NEGATIVE); BUPRENORPHINE SCREEN, URINE NEGATIVE (NEGATIVE); COCAINE SCREEN URINE NEGATIVE (NEGATIVE); METHADONE SCREEN, URINE NEGATIVE (NEGATIVE); METHAMPHETAMINES SCREEN, URINE NEGATIVE (NEGATIVE); OPIATE SCREEN, URINE NEGATIVE (NEGATIVE); OXYCODONE SCREEN, URINE NEGATIVE (NEGATIVE); SQUAMOUS EPITHELIAL CELL,UR RARE Squamous (<= Few); THC CANNABINOID SCREEN, URINE POSITIVE (NEGATIVE); TRICYCLIC ANTIDEPRESSANT,URINE NEGATIVE (NEGATIVE)
[2025-02-20 04:22] LABS: BASOPHILS % (AUTO) 0.1 %; EOSINOPHILS % (AUTO) 0.5 %; HCT - HEMATOCRIT 36.3 % (42.0-52.0); HGB - HEMOGLOBIN 11.8 g/dL (14.0-18.0); LYMPHOCYTES # (AUTO) 0.9 10^3/uL (1.5-3.5); LYMPHOCYTES % (AUTO) 11.8 %; MEAN CORPUSCULAR HEMOGLOBIN 33.6 pg (27.0-31.0); MEAN CORPUSCULAR HGB CONC 32.5 g/dL (32.0-36.0); MEAN CORPUSCULAR VOLUME 103.4 fL (80.0-94.0); MONOCYTES # (AUTO) 0.8 10^3/uL (0.0-1.0); MONOCYTES % (AUTO) 10.2 %; NEUTROPHILS # (AUTO) 6.1 10^3/uL (1.5-6.6); NEUTROPHILS % (AUTO) 77.3 %; PLT - PLATELET COUNT 115 10^3/uL (130-450); RED BLOOD COUNT 3.51 10^6/uL (4.70-6.10); RED CELL DISTRIBUTION WIDTH 12.2 % (12.0-15.0); WHITE BLOOD COUNT 7.9 x10^3/uL (4.8-10.8)
[2025-02-20 04:26] LABS: CALCIUM, IONIZED 1.15 mmol/L (1.09-1.30)
[2025-02-20 04:37] LABS: MAGNESIUM 2.4 mg/dL (1.7-2.3)
[2025-02-20 04:42] LABS: CALCIUM 8.6 mg/dL (8.5-10.3); CREATININE 0.7 mg/dL (0.6-1.3); PHOSPHORUS 2.7 mg/dL (2.5-5.0); POTASSIUM 4.1 mmol/L (3.5-4.5)
[2025-02-20 04:52] LABS: PT - PROTHROMBIN TIME 11.5 secs (9.9-12.6)
[2025-02-20] MEDS: SODIUM CHLORIDE FLUSH 0.9% 10 ML SYRINGE IVP SCH (05:20)
[2025-02-20] MEDS: PANTOPRAZOLE 40 MG VIAL IVP SCH (06:21)
[2025-02-20] MEDS: LORazepam 2 MG/ML VIAL IVP PRN (07:25)
[2025-02-20] MEDS: ENOXAPARIN 40 MG/0.4 ML SYRINGE SUBQ SCH (09:52)
[2025-02-20] MEDS: LACTATED RINGERS 1,000 ML IV SCH (10:13)
--- NOTE | 2025-02-20 10:27 | PHARMACY PROGRESS NOTE ---
Best Possible Medication History Admit Date and Time: 02/19/25 1819 Home Medications Medication Instructions Recorded Confirmed Type ibuprofen 200 mg tablet (Addaprin) 200 mg PO PRN PRN fever or pain 02/19/25 02/19/25 History Processed by: Pharmacy (Medication reconciliation completed by Window MakerDemar) Medications reviewed in ED?: No Medication History completed: Yes Patient Interview: Completed Secondary Source(s): Insurance records [facility] Statement: As the person ultimately responsible for medication therapy, providers are able to order a medication from an existing home medication list in [facility] via the "Reconcile Routine" prior to Confirmation of that medication by ground crewman aircraft support. Such practice is discouraged except when the physician, in their clinical judgment, deems that a medical need exists for a medication without regard to previous use.
[2025-02-20] MEDS: DEXTROSE 5%-0.9% NACL 1,000 ML IV SCH (11:36)
--- NOTE | 2025-02-20 17:30 | PROVIDER PROGRESS NOTE ---
Subjective Prog Note Date Prog Note Date: 02/20/25 Subjective Subjective: he says that he feels better today. he has had some hypoglycemia overnight. has not had an appetite or wanted to eat. he is oriented x3. This afternoon, he is irritated that he does not have his phone. RN spoke to sister today, who recounts that he has been here before for this, and she does not have the strength to be with him as she was here the last time he went through this, He was here for 4 days. Today, he does express the desire to stop drinking. He is not having any pain, and he is oriented today. Current Medications Current Medications Current Medications: Current Medications Generic Name Dose Route Start Last Admin Trade Name Freq PRN Reason Stop Dose Admin Acetaminophen 650 mg 02/19/25 20:05 Acetaminophen 325 Mg Tablet PO Q4HR PRN Pain 1 to 4, or Fever Enoxaparin Sodium 40 mg 02/20/25 09:00 02/20/25 09:52 Enoxaparin 40 Mg/0.4 Ml Syringe SUBQ 40 mg DAILY ZARA Administration Dextrose/Sodium Chloride 1,000 mls @ 125 mls/hr 02/20/25 11:00 02/20/25 11:36 D5ns IV 02/21/25 02:59 125 mls/hr .Q8H ZARA Administration Lorazepam 2 - 20 mg 02/19/25 18:24 02/20/25 14:53 Lorazepam 2 Mg/Ml Vial IVP 2 mg Q15M PRN Administration RASS > 0 Protocol Ondansetron HCl 4 mg 02/19/25 20:05 Ondansetron 4 Mg/2 Ml Vial IVP Q6HR PRN Nausea / Vomiting Pantoprazole Sodium 40 mg 02/20/25 07:00 02/20/25 06:21 Pantoprazole 40 Mg Vial IVP 40 mg QDAC ZARA Administration Prochlorperazine Edisylate 10 mg 02/19/25 20:05 Prochlorperazine 10 Mg/2 Ml Vial IVP Q6HR PRN Nausea / Vomiting Sodium Chloride 10 ml 02/20/25 01:00 02/20/25 16:55 Sodium Chloride Flush 0.9% 10 Ml Syringe IVP 10 ml 0100,0900,1700 ZARA Administration Sodium Chloride 10 ml 02/19/25 20:05 Sodium Chloride Flush 0.9% 10 Ml Syringe IVP PRN PRN NEEDED PER PROVIDER ORDERS Zinc Oxide 113 gm 02/19/25 20:31 02/19/25 21:45 Cod Liver Oil/Zinc Oxide 113 Gm Tube TOP 1 applic PRN PRN Administration Skin Care Objective Vital Signs/Intake & Output Reviewed Vital Signs: Yes Vital Signs: Vital Signs x48h Temp Pulse Resp BP Pulse Ox 02/20/25 17:00 94 17 127/76 98 02/20/25 16:00 37.0 C 96 17 132/62 H 97 02/20/25 15:00 95 13 128/59 L 97 02/20/25 14:00 96 13 139/55 H 96 02/20/25 13:00 98 15 126/61 96 02/20/25 12:00 36.9 C 107 H 14 131/72 H 99 02/20/25 11:00 101 H 19 124/64 99 02/20/25 10:00 98 15 132/71 H 98 Intake & Output: Intake & Output 02/17/25 02/18/25 02/19/25 02/20/25 23:59 23:59 23:59 23:59 Intake Total 1105 / 1105 1702.2 / 1702.2 Output Total 2300 / 2300 Balance 1105 / 1105 -597.8 / -597.8 Weight (kg) 74.5 kg 76.5 kg Objective General Appearance: positive No acute distress and Alert Eyes Bilateral: positive Conjunctivae nml ENT: positive ENT inspection nml Neck: positive Nml inspection Respiratory: positive Chest non-tender, No respiratory distress and Breath sounds nml Cardiovascular: positive Regular rate & rhythm Abdomen: positive Non-tender and No distention Skin: positive Other (skin of face with telangectasias. ) Extremities: positive No pedal edema Neurologic/Psychiatric: positive Oriented x3 and Other (tremulous. ) Lab Results 02/20/25 04:11 02/20/25 12:00 Other Labs: Lab Results x24hrs 02/20/25 02/20/25 02/20/25 Range/Units 12:00 09:58 08:02 WBC (4.8-10.8) x10^3/uL RBC (4.70-6.10) 10^6/uL Hgb (14.0-18.0) g/dL Hct (42.0-52.0) % MCV (80.0-94.0) fL MCH (27.0-31.0) pg MCHC (32.0-36.0) g/dL RDW (12.0-15.0) % Plt Count (130-450) 10^3/uL MPV (7.4-11.4) fL Neut # (Auto) (1.5-6.6) 10^3/uL Lymph # (Auto) (1.5-3.5) 10^3/uL [place] # (Auto) (0.0-1.0) 10^3/uL Eos # (Auto) (0.0-0.7) 10^3/uL Baso # (Auto) (0.0-0.1) 10^3/uL Absolute Nucleated RBC x10^3/uL Nucleated RBC % /100WBC PT (9.9-12.6) secs INR (0.8-1.2) VBG pH (7.31-7.41) Ionized Calcium (1.09-1.30) mmol/L Sodium 133 L 132 L (135-145) mmol/L Potassium (3.5-4.5) mmol/L Chloride (101-111) mmol/L Carbon Dioxide (21-32) mmol/L Anion Gap (6-13) BUN (6-20) mg/dL Creatinine (0.6-1.3) mg/dL Estimated GFR (MDRD) (>89) Glucose (74-104) mg/dL POC Whole Bld Glucose 92 (70-100) mg/dL Calcium (8.5-10.3) mg/dL Phosphorus (2.5-5.0) mg/dL Magnesium (1.7-2.3) mg/dL Total Creatine Kinase 732 H (30-223) IU/L Urine Color Urine Clarity (CLEAR) Urine pH (5.0-7.5) PH Ur Specific [place] (1.002-1.030) Urine Protein (NEGATIVE) mg/dL Urine Glucose (UA) (NEGATIVE) mg/dL Urine Ketones (NEGATIVE) mg/dL Urine Occult Blood (NEGATIVE) Urine Nitrite (NEGATIVE) Urine Bilirubin (NEGATIVE) Urine Urobilinogen (NORMAL) E.U./dL Ur Leukocyte Esterase (NEGATIVE) Urine RBC (0-5) /HPF Urine WBC (0-3) /HPF Ur Squamous Epith Cells (<= Few) Urine Bacteria (None Seen) /HPF Ur Microscopic Review Urine Culture Comments Nasal Screen MRSA (PCR) (NEGATIVE) Urine Opiates Screen (NEGATIVE) Ur Buprenorphine Scrn (NEGATIVE) Ur Oxycodone Screen (NEGATIVE) Urine Methadone Screen (NEGATIVE) Ur Barbiturates Screen (NEGATIVE) Ur Tricyclics Screen (NEGATIVE) Ur Phencyclidine Scrn (NEGATIVE) Ur Amphetamine Screen (NEGATIVE) U Methamphetamines Scrn (NEGATIVE) U Benzodiazepines Scrn (NEGATIVE) Urine Cocaine Screen (NEGATIVE) U Cannabinoids Screen (NEGATIVE) Ur Drug Screen Comment 02/20/25 02/20/25 02/20/25 Range/Units 04:11 01:15 00:22 WBC 7.9 (4.8-10.8) x10^3/uL RBC 3.51 L (4.70-6.10) 10^6/uL Hgb 11.8 L (14.0-18.0) g/dL Hct 36.3 L (42.0-52.0) % MCV 103.4 H (80.0-94.0) fL MCH 33.6 H (27.0-31.0) pg MCHC 32.5 (32.0-36.0) g/dL RDW 12.2 (12.0-15.0) % Plt Count 115 L (130-450) 10^3/uL MPV 10.0 (7.4-11.4) fL Neut # (Auto) 6.1 (1.5-6.6) 10^3/uL Lymph # (Auto) 0.9 L (1.5-3.5) 10^3/uL [place] # (Auto) 0.8 (0.0-1.0) 10^3/uL Eos # (Auto) 0.0 (0.0-0.7) 10^3/uL Baso # (Auto) 0.0 (0.0-0.1) 10^3/uL Absolute Nucleated RBC 0.00 x10^3/uL Nucleated RBC % 0.0 /100WBC PT 11.5 (9.9-12.6) secs INR 1.0 (0.8-1.2) VBG pH 7.340 (7.31-7.41) Ionized Calcium 1.15 (1.09-1.30) mmol/L Sodium 133 L 132 L (135-145) mmol/L Potassium 4.1 (3.5-4.5) mmol/L Chloride 102 (101-111) mmol/L Carbon Dioxide 18 L (21-32) mmol/L Anion Gap 13.0 (6-13) BUN 18 (6-20) mg/dL Creatinine 0.7 (0.6-1.3) mg/dL Estimated GFR (MDRD) 127 (>89) Glucose 72 L (74-104) mg/dL POC Whole Bld Glucose (70-100) mg/dL Calcium 8.6 (8.5-10.3) mg/dL Phosphorus 2.7 (2.5-5.0) mg/dL Magnesium 2.4 H (1.7-2.3) mg/dL Total Creatine Kinase (30-223) IU/L Urine Color YELLOW Urine Clarity CLEAR (CLEAR) Urine pH 6.0 (5.0-7.5) PH Ur Specific [place] 1.025 (1.002-1.030) Urine Protein TRACE (NEGATIVE) mg/dL Urine Glucose (UA) NEGATIVE (NEGATIVE) mg/dL Urine Ketones >=80 H (NEGATIVE) mg/dL Urine Occult Blood TRACE-LYSE (NEGATIVE) Urine Nitrite NEGATIVE (NEGATIVE) Urine Bilirubin SMALL H (NEGATIVE) Urine Urobilinogen 0.2 (NORMAL) (NORMAL) E.U./dL Ur Leukocyte Esterase NEGATIVE (NEGATIVE) Urine RBC 0-5 (0-5) /HPF Urine WBC 0-3 (0-3) /HPF Ur Squamous Epith Cells RARE Squamous (<= Few) Urine Bacteria None Seen (None Seen) /HPF Ur Microscopic Review INDICATED Urine Culture Comments NOT INDICATED Nasal Screen MRSA (PCR) (NEGATIVE) Urine Opiates Screen NEGATIVE (NEGATIVE) Ur Buprenorphine Scrn NEGATIVE (NEGATIVE) Ur Oxycodone Screen NEGATIVE (NEGATIVE) Urine Methadone Screen NEGATIVE (NEGATIVE) Ur Barbiturates Screen POSITIVE H (NEGATIVE) Ur Tricyclics Screen NEGATIVE (NEGATIVE) Ur Phencyclidine Scrn NEGATIVE (NEGATIVE) Ur Amphetamine Screen NEGATIVE (NEGATIVE) U Methamphetamines Scrn NEGATIVE (NEGATIVE) U Benzodiazepines Scrn POSITIVE H (NEGATIVE) Urine Cocaine Screen NEGATIVE (NEGATIVE) U Cannabinoids Screen POSITIVE H (NEGATIVE) Ur Drug Screen Comment CUTOFF CONC BELOW: 02/19/25 02/19/25 Range/Units 20:16 20:00 WBC (4.8-10.8) x10^3/uL RBC (4.70-6.10) 10^6/uL Hgb (14.0-18.0) g/dL Hct (42.0-52.0) % MCV (80.0-94.0) fL MCH (27.0-31.0) pg MCHC (32.0-36.0) g/dL RDW (12.0-15.0) % Plt Count (130-450) 10^3/uL MPV (7.4-11.4) fL Neut # (Auto) (1.5-6.6) 10^3/uL Lymph # (Auto) (1.5-3.5) 10^3/uL [place] # (Auto) (0.0-1.0) 10^3/uL Eos # (Auto) (0.0-0.7) 10^3/uL Baso # (Auto) (0.0-0.1) 10^3/uL Absolute Nucleated RBC x10^3/uL Nucleated RBC % /100WBC PT (9.9-12.6) secs INR (0.8-1.2) VBG pH (7.31-7.41) Ionized Calcium (1.09-1.30) mmol/L Sodium 128 L (135-145) mmol/L Potassium (3.5-4.5) mmol/L Chloride (101-111) mmol/L Carbon Dioxide (21-32) mmol/L Anion Gap (6-13) BUN (6-20) mg/dL Creatinine (0.6-1.3) mg/dL Estimated GFR (MDRD) (>89) Glucose (74-104) mg/dL POC Whole Bld Glucose (70-100) mg/dL Calcium (8.5-10.3) mg/dL Phosphorus (2.5-5.0) mg/dL Magnesium (1.7-2.3) mg/dL Total Creatine Kinase (30-223) IU/L Urine Color Urine Clarity (CLEAR) Urine pH (5.0-7.5) PH Ur Specific [place] (1.002-1.030) Urine Protein (NEGATIVE) mg/dL Urine Glucose (UA) (NEGATIVE) mg/dL Urine Ketones (NEGATIVE) mg/dL Urine Occult Blood (NEGATIVE) Urine Nitrite (NEGATIVE) Urine Bilirubin (NEGATIVE) Urine Urobilinogen (NORMAL) E.U./dL Ur Leukocyte Esterase (NEGATIVE) Urine RBC (0-5) /HPF Urine WBC (0-3) /HPF Ur Squamous Epith Cells (<= Few) Urine Bacteria (None Seen) /HPF Ur Microscopic Review Urine Culture Comments Nasal Screen MRSA (PCR) NEGATIVE (NEGATIVE) Urine Opiates Screen (NEGATIVE) Ur Buprenorphine Scrn (NEGATIVE) Ur Oxycodone Screen (NEGATIVE) Urine Methadone Screen (NEGATIVE) Ur Barbiturates Screen (NEGATIVE) Ur Tricyclics Screen (NEGATIVE) Ur Phencyclidine Scrn (NEGATIVE) Ur Amphetamine Screen (NEGATIVE) U Methamphetamines Scrn (NEGATIVE) U Benzodiazepines Scrn (NEGATIVE) Urine Cocaine Screen (NEGATIVE) U Cannabinoids Screen (NEGATIVE) Ur Drug Screen Comment Assessment/Plan Problem List (1) Delirium tremens: Impression: He remains tremulous this afternoon. has required multiple doses of ativan. not able to operate the TV remote due to his tremors. I will start him on [id number] mg every 6 hours, and continue PRN ativan as needed for CIWA. He will remain in the ICU for safety. he is impulsive in his patterns of behaviour, as proven by his fall in the ED. Social work consult is pending for recovery resources. He is not yet ready for this conversation. (2) Hypoglycemia: Impression: I have changed his IV fluids to D5NS due to this. Laboratory Tests 02/19/25 02/20/25 02/20/25 16:38 04:11 09:58 Glucose 83 72 L POC Whole Bld Glucose 92 This AM, needed juice to keep blood sugar up. Likely this is due to poor nutrition and low glycogen stores in the liver. I will add pre albumin to his AM labs. He continues to show no interest in oral intake today. (3) Hyponatremia: Impression: Laboratory Tests 02/19/25 02/20/25 02/20/25 20:16 00:22 04:11 Sodium 128 L 132 L 133 L 02/20/25 02/20/25 08:02 12:00 Sodium 132 L 133 L Resolving. not on fluid restriction but he is not wanting to eat or drink. he is on D5NS due to his low blood sugar, and will continue these fluids. (4) Rhabdomyolysis: Impression: I will continue to monitor his renal function. His CK is down slightly today. Will continue to give fluids. Laboratory Tests 02/19/25 02/20/25 16:38 12:00 Total Creatine Kinase 975 H 732 H I have spent 45 minutes in the care of this patient today. This includes time [id number], review and ordering of diagnostic imaging and laboratory studies. He will houri oh monitoring the patient's signs symptoms, evaluation of medication effectiveness and patient's response to treatment.
[2025-02-20] MEDS: chlordiazePOXIDE 25 MG CAPSULE PO SCH (18:05)
[2025-02-20] MEDS: MELATONIN 3 MG TABLET PO SCH (22:19)
[2025-02-20] MEDS: PROCHLORPERAZINE 10 MG/2 ML VIAL IVP PRN (22:19)
[2025-02-21 04:38] LABS: BASOPHILS % (AUTO) 0.4 %; EOSINOPHILS # (AUTO) 0.1 10^3/uL (0.0-0.7); EOSINOPHILS % (AUTO) 1.3 %; HCT - HEMATOCRIT 34.6 % (42.0-52.0); HGB - HEMOGLOBIN 11.1 g/dL (14.0-18.0); LYMPHOCYTES # (AUTO) 0.9 10^3/uL (1.5-3.5); LYMPHOCYTES % (AUTO) 20.6 %; MEAN CORPUSCULAR HEMOGLOBIN 32.8 pg (27.0-31.0); MEAN CORPUSCULAR HGB CONC 32.1 g/dL (32.0-36.0); MEAN CORPUSCULAR VOLUME 102.4 fL (80.0-94.0); MEAN PLATELET VOLUME 9.7 fL (7.4-11.4); MONOCYTES # (AUTO) 0.5 10^3/uL (0.0-1.0); MONOCYTES % (AUTO) 11.1 %; NEUTROPHILS % (AUTO) 66.4 %; PLT - PLATELET COUNT 112 10^3/uL (130-450); RED BLOOD COUNT 3.38 10^6/uL (4.70-6.10); RED CELL DISTRIBUTION WIDTH 12.2 % (12.0-15.0); WHITE BLOOD COUNT 4.5 x10^3/uL (4.8-10.8)
[2025-02-21 04:55] LABS: CALCIUM 8.4 mg/dL (8.5-10.3); CREATININE 0.5 mg/dL (0.6-1.3); PHOSPHORUS 2.5 mg/dL (2.5-5.0); POTASSIUM 3.3 mmol/L (3.5-4.5)
[2025-02-21 04:59] LABS: CALCIUM, IONIZED 1.17 mmol/L (1.09-1.30); VBG PH 7.415 (7.31-7.41)
[2025-02-21] MEDS: POTASSIUM CHLORIDE 20 MEQ/15 ML UDC PO SCH (09:09)
[2025-02-21] MEDS: THIAMINE 100 MG TABLET PO SCH (09:10)
[2025-02-21] MEDS: PRENATAL VITAMIN TABLET PO SCH (09:10)
[2025-02-21] MEDS ORDERED: LORazepam 2 MG/ML VIAL IVP PRN (14:05)
--- NOTE | 2025-02-21 14:07 | PROVIDER PROGRESS NOTE ---
Subjective Prog Note Date Prog Note Date: 02/21/25 Subjective Pt reports feeling: Improved Subjective: he is less tremulous and doing well. he is expressing a desire to leave the hospital. Current Medications Current Medications Current Medications: Current Medications Generic Name Dose Route Start Last Admin Trade Name Freq PRN Reason Stop Dose Admin Acetaminophen 650 mg 02/19/25 20:05 Acetaminophen 325 Mg Tablet PO Q4HR PRN Pain 1 to 4, or Fever Chlordiazepoxide HCl 25 mg 02/20/25 18:00 02/21/25 11:45 Chlordiazepoxide 25 Mg Capsule PO 25 mg Q6HR ZARA Administration Enoxaparin Sodium 40 mg 02/20/25 09:00 02/21/25 08:03 Enoxaparin 40 Mg/0.4 Ml Syringe SUBQ 40 mg DAILY ZARA Administration Lorazepam 1 mg 02/21/25 14:05 Lorazepam 2 Mg/Ml Vial IVP Q30M PRN CIWA >8 Protocol Melatonin 3 mg 02/20/25 21:00 02/20/25 22:19 Melatonin 3 Mg Tablet PO 3 mg QPM ZARA Administration Ondansetron HCl 4 mg 02/19/25 20:05 Ondansetron 4 Mg/2 Ml Vial IVP Q6HR PRN Nausea / Vomiting Potassium Chloride 40 meq 02/21/25 09:00 02/21/25 09:09 Potassium Chloride 20 Meq/15 Ml Udc PO 40 meq DAILYWM ZARA Administration Multivit/Folic Acid/Iron 1 tab 02/21/25 10:00 02/21/25 09:10 Vitamin Tablet PO 1 tab DAILYWM ZARA Administration Prochlorperazine Edisylate 10 mg 02/19/25 20:05 02/20/25 22:19 Prochlorperazine 10 Mg/2 Ml Vial IVP 10 mg Q6HR PRN Administration Nausea / Vomiting Sodium Chloride 10 ml 02/20/25 01:00 02/21/25 08:03 Sodium Chloride Flush 0.9% 10 Ml Syringe IVP 10 ml 0100,0900,1700 ZARA Administration Sodium Chloride 10 ml 02/19/25 20:05 Sodium Chloride Flush 0.9% 10 Ml Syringe IVP PRN PRN NEEDED PER PROVIDER ORDERS Thiamine HCl 100 mg 02/21/25 10:00 02/21/25 09:10 Thiamine 100 Mg Tablet PO 100 mg DAILY ZARA Administration Zinc Oxide 113 gm 02/19/25 20:31 02/19/25 21:45 Cod Liver Oil/Zinc Oxide 113 Gm Tube TOP 1 applic PRN PRN Administration Skin Care Objective Vital Signs/Intake & Output Reviewed Vital Signs: Yes Vital Signs: Vital Signs x48h Temp Pulse Resp BP Pulse Ox 02/21/25 13:00 86 14 134/87 H 99 02/21/25 12:00 36.8 C 89 16 127/78 99 02/21/25 11:00 92 20 132/82 H 100 02/21/25 10:00 104 H 16 146/85 H 98 02/21/25 09:00 87 13 128/79 98 02/21/25 08:00 37.2 C 82 16 142/84 H 98 02/21/25 07:00 85 12 132/81 H 97 Intake & Output: Intake & Output 02/18/25 02/19/25 02/20/25 02/21/25 23:59 23:59 23:59 23:59 Intake Total 1105 / 1105 2822.2 / 2822.2 1360 / 1360 Output Total 5500 / 5500 1200 / 1200 Balance 1105 / 1105 -2677.8 / -2677.8 160 / 160 Weight (kg) 74.5 kg 76.5 kg 76 kg Objective General Appearance: positive No acute distress and Alert Eyes Bilateral: positive Conjunctivae nml ENT: positive ENT inspection nml Neck: positive Nml inspection Respiratory: positive Chest non-tender, No respiratory distress and Breath sounds nml Cardiovascular: positive Regular rate & rhythm Abdomen: positive Non-tender and No distention Skin: positive Other (skin of face with telangectasias. ) Extremities: positive No pedal edema Neurologic/Psychiatric: positive Oriented x3 and Other (tremulous. ) Lab Results 02/21/25 04:30 02/21/25 13:00 Other Labs: Lab Results x24hrs 02/21/25 02/21/25 Range/Units 13:00 04:30 WBC 4.5 L (4.8-10.8) x10^3/uL RBC 3.38 L (4.70-6.10) 10^6/uL Hgb 11.1 L (14.0-18.0) g/dL Hct 34.6 L (42.0-52.0) % MCV 102.4 H (80.0-94.0) fL MCH 32.8 H (27.0-31.0) pg MCHC 32.1 (32.0-36.0) g/dL RDW 12.2 (12.0-15.0) % Plt Count 112 L (130-450) 10^3/uL MPV 9.7 (7.4-11.4) fL Neut # (Auto) 3.0 (1.5-6.6) 10^3/uL Lymph # (Auto) 0.9 L (1.5-3.5) 10^3/uL [place] # (Auto) 0.5 (0.0-1.0) 10^3/uL Eos # (Auto) 0.1 (0.0-0.7) 10^3/uL Baso # (Auto) 0.0 (0.0-0.1) 10^3/uL Absolute Nucleated RBC 0.00 x10^3/uL Nucleated RBC % 0.0 /100WBC VBG pH 7.415 H (7.31-7.41) Ionized Calcium 1.17 (1.09-1.30) mmol/L Sodium 136 (135-145) mmol/L Potassium 3.4 L 3.3 L (3.5-4.5) mmol/L Chloride 105 (101-111) mmol/L Carbon Dioxide 25 (21-32) mmol/L Anion Gap 6.0 (6-13) BUN 5 L (6-20) mg/dL Creatinine 0.5 L (0.6-1.3) mg/dL Estimated GFR (MDRD) 187 (>89) Glucose 103 (74-104) mg/dL Calcium 8.4 L (8.5-10.3) mg/dL Phosphorus 2.5 (2.5-5.0) mg/dL Magnesium 2.0 (1.7-2.3) mg/dL Prealbumin 20 (17-34) mg/dL Assessment/Plan Problem List (1) Delirium tremens: Impression: He has improved markedly. Required 1 dose of IV Ativan overnight in addition to the Librium scheduled. He is feeling better but still remains unsteady on his feet needing to use a walker to get back and forth to the bathroom. He is taking more fluids. He expresses the desire to leave the hospital. His friend Sahra is at the bedside. The 3 of us had a discussion about his substance use. He was able to tell the story of his addiction to alcohol. He does have a desire to stop drinking. He cannot express to me what his plan will be when he wants to have another drink. He has refused resources from social work. We talked about the need for recovery plan. I emphasized to him that if he does not have a plan for what he will do when he craves a drink of alcohol it is very likely that he will relapse. We discussed the need for mental health assistance. [place]. [place] he needs cognitive behavioral therapy which can be difficult to find. I am not sure if his insurance will cover the assistance of our psychiatric nurse practitioners but mention to him that they can be quite helpful for medication management. He also needs to establish primary care here [place] the [place]. I anticipate that he will stay overnight as he is still requiring occasional IV Ativan. I plan to discharge him home on Librium with a taper from 25 4 times daily down to 25 at bedtime over the course of 3 to 4 days. (2) Hypoglycemia: Impression: I changed fluids due to this. fluids were off for several hours before BMP was drawn and glucose was 105. I think as his nutritional status has improved, he is building glycogen stores. Prealbumin is 20, WNL, but low normal. (3) Hyponatremia: Impression: Laboratory Tests 02/19/25 02/20/25 02/20/25 20:16 00:22 04:11 Sodium 128 L 132 L 133 L 02/20/25 02/20/25 08:02 12:00 Sodium 132 L 133 L 02/21/25 04:30 Sodium 136 his sodium has corrected with little to no intervention. (4) Rhabdomyolysis: Impression: I will continue to monitor his renal function. His CK is down slightly today. I have stopped IVF. he is eating and drinking today. renal function is normal. I will repeat BMP in the AM. 02/19/25 02/20/25 16:38 12:00 Total Creatine Kinase 975 H 732 H I have spent 40 minutes in the care of this patient today. This includes time [id number], review and ordering of diagnostic imaging and laboratory studies. I have spent time today at the bedside counseling the patient on alcohol cessation and encouraging him to be successful in his pursuits.
[2025-02-21] MEDS: ACETAMINOPHEN 325 MG TABLET PO PRN (23:42)
[2025-02-22 05:47] LABS: BASOPHILS % (AUTO) 0.8 %; EOSINOPHILS # (AUTO) 0.1 10^3/uL (0.0-0.7); EOSINOPHILS % (AUTO) 1.9 %; HCT - HEMATOCRIT 34.9 % (42.0-52.0); HGB - HEMOGLOBIN 11.7 g/dL (14.0-18.0); LYMPHOCYTES % (AUTO) 27.7 %; MEAN CORPUSCULAR HEMOGLOBIN 33.4 pg (27.0-31.0); MEAN CORPUSCULAR HGB CONC 33.5 g/dL (32.0-36.0); MEAN CORPUSCULAR VOLUME 99.7 fL (80.0-94.0); MEAN PLATELET VOLUME 9.7 fL (7.4-11.4); MONOCYTES # (AUTO) 0.5 10^3/uL (0.0-1.0); MONOCYTES % (AUTO) 14.8 %; NEUTROPHILS % (AUTO) 54.8 %; PLT - PLATELET COUNT 126 10^3/uL (130-450); RED CELL DISTRIBUTION WIDTH 11.7 % (12.0-15.0); WHITE BLOOD COUNT 3.7 x10^3/uL (4.8-10.8)
[2025-02-22 06:13] LABS: CREATININE 0.5 mg/dL (0.6-1.3); POTASSIUM 3.5 mmol/L (3.5-4.5)
[2025-02-22 08:27] VITALS: BP 132/91; TEMP 98.6; O2SAT 99
--- NOTE | 2025-02-22 11:46 | Discharge Summary ---
"Discharge Summary Admit Date: 02/19/25 Discharge Date: 02/22/25 Discharging Provider: Constanza Loaiza PA-C Primary Care Provider: [facility] Code Status: Attempt Resuscitation DIAGNOSES Discharge Diagnoses with Status of Each Condition: Delirium tremens. Acute and severe on admission. Has weaned off of IV Ativan. Will taper Librium as an outpatient. Hypoglycemia, resolved. Hyponatremia, resolved Rhabdomyolysis. Resolved. No change in renal function. HPI History of Present Illness: 39-year-old male history of alcoholism brought in by ambulance from walk-in clinic for alcohol withdrawal. History is hard to obtain as patient is delirious and hallucinating. Reported that he has never had a seizure from alcohol withdrawal In the ER, workup was significant for sodium 128, CO2 14, elevations in AST, ALT as well as a CK of 975. Alcohol, Tylenol, salicylate levels all negative. UDS was ordered by ER provider and is in process. Hospitalist was contacted for admission for acute alcohol withdrawal and impending delirium tremens CONSULTS | PROCEDURES Procedures: CT head and CT cervical spine: no acute findings HOSPITAL COURSE Hospital Course: Presented to the hospital with hallucinations and tremors at that point it had been at least a day since his last drink. He was placed in the ICU overnight due to elevated CIWA scores. He was treated with as needed lorazepam. He also had elevated CK of 975 when he came in which did not trend upward. He was hydrated and had no deterioration of his renal function. By hospital day 2 he was more lucid although was still experiencing hypoglycemia. His hyponatremia was improving with conservative treatment. He was given dextrose containing fluids and eventually was able to tolerate a diet. He was started on long- acting benzodiazepines and tapered off of as needed IV Ativan. He was transferred to the floor overnight and did well. His hyponatremia resolved with intake of oral fluids. Patient had discussions with both myself and social work regarding his alcohol withdrawal. I was impressed upon him that he should engage with community resources and have a plan to control his alcohol cravings. Also encouraged him to get primary care follow-up and informed him of the services that are available through our psychiatric nurse practitioners here at [facility]. ALLERGIES Allergies Allergy/AdvReac Type Severity Reaction Status Date / Time Penicillins Allergy Hives Verified 02/19/25 16:23 MEDICATIONS Ambulatory Orders Medication Instructions Recorded Confirmed ibuprofen 200 mg tablet (Addaprin) 200 mg PO PRN PRN fever or pain 02/19/25 02/19/25 chlordiazepoxide HCl 25 mg capsule 25 mg PO UD #10 caps 02/22/25 vit,calcium 27-ferrous 1 tab PO DAILYWM #30 tabs 02/22/25 fum 60 mg iron-folic acid 1 mg tablet (Trinatal Rx 1) thiamine mononitrate (vit B1) 100 100 mg PO DAILY #30 tabs 02/22/25 mg tablet PHYSICAL EXAM AT DISCHARGE Vital Signs: Vital Signs x48h Temp Pulse Resp BP Pulse Ox 02/22/25 08:26 37.0 C 82 14 132/91 H 99 02/22/25 03:52 36.8 C 82 20 135/80 H 96 Physical Exam Other/Comments: General Appearance: positive No acute distress and Alert Eyes Bilateral: positive Conjunctivae nml ENT: positive ENT inspection nml Neck: positive Nml inspection Respiratory: positive Chest non-tender, No respiratory distress and Breath sounds nml Cardiovascular: positive Regular rate & rhythm Abdomen: positive Non-tender and No distention Skin: positive Other (skin of face with telangectasias. ) Extremities: positive No pedal edema Neurologic/Psychiatric: positive Oriented x3 and Other (tremulous. ) LABS 02/22/25 05:29 02/22/25 05:29 FOLLOW UP Follow Up: referred for Primary care at : [facility]. TIME SPENT Time Spent in Discharge (Minutes): 45 Discharge Plan Discharge Patient Disposition: Home, Self Care Condition: Stable Prescriptions: New chlordiazepoxide HCl 25 mg Capsule 25 mg PO UD Qty: 10 0RF Rx Instructions: 25mg every 6 hours for one day, 25mg every 8 hours for one day, 25mg every 12 hours for one day, then 25mg at bedtime. Trinatal Rx 1 60 mg iron-1 mg Tablet 1 tab PO DAILYWM Qty: 30 0RF thiamine mononitrate (vit B1) 100 mg Tablet 100 mg PO DAILY Qty: 30 0RF Continued ibuprofen [Addaprin] 200 mg tablet 200 mg PO PRN PRN (Reason: fever or pain) Activity Restrictions: No Restrictions Diet: Regular Health Concerns: You are a 39-year-old male who came into the hospital with alcohol withdrawal symptoms. Your alcohol withdrawal was very severe, such as you required care in the ICU for several days. I am discharging you home with several new medications. 2 of these are vitamins. Alcohol can cause you to be low in B vitamins and iron. Therefore I have given you prescriptions for vitamins and thiamine. The last of the medications I am discharging you home with is called Librium. This is a long acting benzodiazepine. You should not drive on this medication. What it does is it helps to get through the last of your physiological addiction to alcohol. It will help with tremors restlessness sweating and sleeplessness. With the Librium will not help with is alcohol cravings. Without a plan for how you are going to handle the times when you want to drink it is almost certain that you will fail and start drinking again. What that plan is needs to be individualized. It needs to work for you. Having someone, another person, that you are accountable to is always a good idea. Having alternative behaviors to drinking is also a good idea. Thinking about what you will do in the situation where you want to have a drink is very important. Utilize resources given to you by social workers. As far as the rest of your health goes I would definitely recommend that you set up primary care. I think the [facility] in [place] is a good resource. [facility] also has psychiatric nurse practitioners that can be very helpful when dealing with substance abuse. There are medications they can prescribe that will help you deal with cravings etc. It is very low on your list of priorities at this time, but you may be more comfortable in your own skin with a dermatology consultation. It is clear that you have really been struggling with your skin. I would recommend [facility]. They are a large practice with multiple locations. There is one location here in [place] but also locations [place] and [place]. It is obvious that you are an intelligent human being with a whole lot going for you. I would encourage you to maximize your potential because you can do awesome things with your ideas. you have a followup appt on 02/27 at 2:45pm at the [facility]. I will send that [employer] a copy of my notes from here, so she will have an idea about how to go about helping you. I wish you all the best. Print Language: Maltese Patient Instructions: Alcoholism, Addiction Alcohol, Addiction Recovery Stand Alone Forms: PCP List Follow-up Care: Jose Stubbs, THERMODYNAMIC PHYSICIST [Provider Admit Priv/Credential] -"
== END 2025-02-22 12:25 | disposition home or self-care (01) | DRG 897 ==
LOC: ED 16:02 → ICU 18:19 → MS3 02-21 15:05
PROVIDERS: ADMIT Nurse Practitioner Acute Care; ATTEND Nurse Practitioner Acute Care
DX: M62.82 Rhabdomyolysis; E87.1 Hypo-osmolality and hyponatremia; R74.01 Elevation of levels of liver transaminase levels; F17.220 Nicotine dependence, chewing tobacco, uncomplicated; F10.231 Alcohol dependence with withdrawal delirium; E16.2 Hypoglycemia, unspecified